=== PATIENT | female | born 1950 | race Caucasian/White ===

== ENCOUNTER 2024-11-08 10:58 | Outpatient (AMB) | payer MEDICARE, OTHER, SELFPAY ==
--- OUTSIDE RECORDS SUMMARY | 2023-11-29 09:00 | XMS_ITS | Encounter Summary ---
Author Name [facility] [place] Organization [place] Address [address] [place] [id number] Support Name Relationship Address Phone LISTED, NONE Emergency Contact Unknown Unavailabl e Selected Encounter This section includes the information on record at [place] for the Encounter. Date/Time Encounter Type Encounter Description Reason Provider Source Nov 29, 2023 01:00 PM CASE MANAGEMENT CAREGIVER SUPPORT PROGRAM ICD-10-CM Z71.0 Prsn encntr hlth serv to consult on behalf of another person LETY SHEN Encounter Template Text not used by [place] Assessments - Encounter Diagnoses This section includes the primary and secondary diagnoses documented for the Encounter. Date/Time Primary/Secondary Diagnosis Diagnosis Name Provider Source Dec 01, 2023 07:29 PM PRIMARY Prsn encntr hlth serv to consult on behalf of another person [facility]EN [facility] Encounter Notes: All associated encounter notes This section contains the clinical notes associated to the Encounter. Date/Time Encounter Note(s) Provider Source Nov 29, 2023 01:00 PM CAREGIVER CERTIFIC ATE: LOCAL TITLE: [facility] WELLNESS CONTACT CAREGIVER STANDARD TITLE: CAREGIVER CERTIFICATE DATE OF NOTE: NOV 29, 2023@13:00 ENTRY DATE: NOV 29, 2023@13:18:57 AUTHOR: LETY SHEN EXP COSIGNER: URGENCY: STATUS: COMPLETED This Family Caregiver is enrolled in the VA's Program of Comprehensive Assistance for Family Caregivers (PCAFC). While enrolled in the PCAFC, wellness contacts are required and must review the [place]'s well-being, adequacy of personal care services being provided by the Family Caregiver(s), and the well-being of the Family Caregiver(s). This wellness contact will occur at a minimum of once every 120 days, and at least one visit must occur in the eligible [place]'s home on an annual basis. Date of Visit: 11/29/23 Length of Visit: 20 mins Full Name (last, first): Yocasta Jj SSN:[id number] Date of : 1950 Method of contact: __ Telephone _x_ Telehealth / VA Video Connect Caregiver contact details: Best contact number for backup/emergency communication with caregiver (required): Phone number: x_ Other: in-home visit __ Caregiver declined to provide emergency contact information Caregiver location during visit: _x_ Home address: [address] [place], [place] [id number] __ Other non-VA location __ Caregiver declined request to disclose current location If caregiver will not provide requested information: The caregiver must be made aware of the risks associated with not providing the information. The clinician must decide with the caregiver if the visit can continue without this information. The caregiver's understanding of the risks along with the clinician's plan to proceed or to use another care modality must be documented in the medical record. _x_ Others present for visit with caregiver's consent: Name: [place]/, Ruiz Jj Caregiver confirms location is private and safe for visit. _x_ Yes Visit conducted by clinical video telehealth: _x_Yes __No Caregiver verbal consent obtained. _x_Yes __No Location/emergency number confirmed. _x_Yes __No __VA facility __ In-Home CAREGIVER INFORMATION The caregiver is a: _x_ Primary Family Caregiver __ Secondary Family Caregiver __ Secondary #2 Family Caregiver Caregiver is providing care to: Name: Ruiz Does the caregiver live with the ? _x_ Yes __ No Have there been any changes to the caregiver's address, telephone number or e-mail address? __ Yes Updates: _ _x_ No Is caregiver's contact information in electronic health record and the Caregiver Support Program IT system current? _x_ Yes __ No Updates: _ CAREGIVER ASSESSMENT How has your physical/mental/emotional health been lately? Have there been any changes (falls, ER visits, hospitalizations)? Details: -No recent ER visits, falls or hospitalizations for Caregiver. Overall, her health is stable. What current challenges or stressors do you have, if any? Details: - experienced a fall earlier in the week. He sustained a concussion and a few stitches. Caregiver is nursing him back to health. -Got denied SAH Nahun needed for home modifications. How are you coping with these issues? (discuss coping skills and support systems as appropriate, consider referral to mental health) Details: - reminded about RELEASE AND TECHNICAL RECORDS CLERK, respite care services and adult day health to assist her. She continues to decline reporting that for now she is leaning on her 51 year old son who also lives with couple. -She and [place] will be meeting with VSO to understand why they were declined SAH nahun. They continue to use HISA nahun for bathroom modfications. Do you feel comfortable and safe in your home environment? _x_ Yes __ No Details: What additional supports do you need to care for the , if any? (discuss respite services as appropriate) Details: participate in Parkinson's REACH VA Support Group which ended in September. She found benefit from this group and is interested in the [employer] Reach Group startign in December. She also finds benefit in [employer] Text Messaging service. How can the Caregiver Support Program support you? What goals/needs can we assist you with? Details: See above. SUMMARY OF VISIT/ACTION TAKEN Details: Caregiver quarterly wellness assessment took place via [facility]. [place] was recently seen in ER due to fall where he sustained a concussion and a few stitches to his head. He was discharged home and is taking it easy with 's assistance. Their house is currently under construction to make it more handicap accessible. Couple had applied for HISA and SAH grants, but were denied the latter and working with local [facility] to understand why they were declined and to see if there is the option to appeal. Couple did not appeal CEAT decision back in August regarding request for reassessment. CEAT determined that [place] continued to remain at level 1 which was disappointing to who feels she is having to provide more supervision and assistance due to the progression of [place]'s PD including an increase in freezing episodes and gait instability leading to falls. She is also having to assist with grooming tasks like shaving due to [place]'s hand tremors. Couple are aware that they can ask for future reassessment should there be a significant decline in [place]'s health. They were educated on other supports to assist caregiver such as VA RELEASE AND TECHNICAL RECORDS CLERK, respite care and adult day care. Couple have backup support in the form of their 51 year old son, Quang, who also lives with couple. [place] will be participating in PT for gait training and strengthening/conditioning. They will consider physiatry services in the future for alternative treatment options. [place] continues to be followed by Dr. Antonio, his new neurologist out of [facility], who is addressing medication changes. had participate in [facility] Parkinson's Support Group and found benefit from this group, as well as [employer] Text Messaging Service. She would like referral to upcoming [facility] Support Group. [employer] Systems Designer to place referra Referrals: (check all that apply) __ CSL Education Calls _x_ REACH [place], [facility] [place] Support Group __ Building Better Caregivers __ Caregivers FIRST __ Community Caregiver Support Group __ VA Caregiver Support Group __ VA Mental Health Therapy __ Caregiver Health and Wellbeing Coaching __ Peer Support Mentoring _x_ [employer] Text __ Financial planning assistance __ Legal assistance __ Advance Care Planning Forms __ other Reassessment /trino/ REFUGIO JOHNSON FINANCIAL REPORTING ACCOUNTANT Signed: 12/01/2023 19:30 LETY SHEN [place] CNT[facility]
--- OUTSIDE RECORDS SUMMARY | 2024-03-29 12:00 | XMS_ITS | Encounter Summary ---
Author Name [facility] [place] Organization [place] Address [address] [place] [address] Support Name Relationship Address Phone LISTED, NONE Emergency Contact Unknown Unavailabl e Selected Encounter This section includes the information on record at [place] for the Encounter. Date/Time Encounter Type Encounter Description Reason Provider Source Mar 29, 2024 04:00 PM CASE MANAGEMENT CAREGIVER SUPPORT PROGRAM ICD-10-CM Z71.0 Prsn encntr hlth serv to consult on behalf of another person LETY SHEN Encounter Template Text not used by [place] Assessments - Encounter Diagnoses This section includes the primary and secondary diagnoses documented for the Encounter. Date/Time Primary/Secondary Diagnosis Diagnosis Name Provider Source Apr 03, 2024 10:03 PM PRIMARY Prsn encntr hlth serv to consult on behalf of another person LET[facility] SHEN [facility] Encounter Notes: All associated encounter notes This section contains the clinical notes associated to the Encounter. Date/Time Encounter Note(s) Provider Source Mar 29, 2024 04:00 PM CAREGIVER CERTIFIC ATE: LOCAL TITLE: [facility] PCAFC WELLNESS CONTACT CAREGIVER STANDARD TITLE: CAREGIVER CERTIFICATE DATE OF NOTE: MAR 29, 2024@16:00 ENTRY DATE: MAR 29, 2024@21:24:51 AUTHOR: LETY SHEN EXP COSIGNER: URGENCY: STATUS: COMPLETED Caregiver Support Program PCAFC Wellness Contact Caregiver This Family Caregiver is enrolled in VA's Program of Comprehensive Assistance for Family Caregivers (PCAFC). While enrolled in PCAFC, wellness contacts review the [place]'s well-being, adequacy of personal care services being provided by the Family Caregiver(s), and the well-being of the Family Caregiver(s). Wellness contacts occur at a minimum of once every 120 days, and at least one visit must occur in the eligible [place]'s home on an annual basis. Date of visit: Mar Length of visit: 20 minutes The Caregiver was identified using the following singh identifiers: Full Name: JEREMY JJ Date of : Dec Full Address: [address] [place] [id number] Phone #: PATIENT PHONE - Email address: [email or web address] Is the above contact information in the electronic health record and the Caregiver Support Program IT system, correct? Yes Reason for contact: Routine (120-day contact) Method of contact: Video Telehealth Contact number for backup/emergency communication: PATIENT PHONE - Caregiver location during visit: [address] [place] [address] Others present for visit with caregiver's consent: Name(s): Caregiver confirms location is safe and private for visit. Telehealth Disclosure: Visit conducted by synchronous telehealth. Caregiver verbal consent obtained. Location/emergency number confirmed. Environment surveyed and all participants identified. Virtual conference room locked. CAREGIVER INFORMATION The caregiver is a: Primary Family Caregiver Caregiver is providing care to: Name: Ruiz Jj The caregiver lives with the . CAREGIVER ASSESSMENT How has your physical/mental/emotional health been lately? Details: Stable overall. Has rotator cuff issue with right shoulder that she is going to have assessed. Unable to play pickeball. Believes she has arthritis Have you experienced any changes (falls, ER visits, hospitalizations) and/or any concerns? No What is most important to you about your health and overall well-being? Details: Staying fit, doing small exercises and engaging in self-care. What goals or needs can we assist you with? Details: Caregiver inquired about follow-up Reach VA maintenance session. Dairy Husbandry Teacher agreed to discuss with colleague and get back to caregiver. Are there training topics or resources that you would like to learn more about? Details: Self-care workshops. was made aware of newsletter that will go out with upcoming workshops. Do you have any legal or financial planning concerns? Yes Details: Dairy Husbandry Teacher to forward caregiver [facility] legal and financial resource link as renovations were costly. Do you feel comfortable and safe in your home environment? Yes Do you have a personalized respite plan? Yes - Informal Details: 51 year-old son - Formal Details: educated on VA EVICTION SPECIALIST and respite support SCREENING TOOLS CSP Staff provided information on the following resources and support: - Other VA Services: VA EVICTION SPECIALIST/Respite Supports; Legal & Financial Resource. Dairy Husbandry Teacher to follow up on Reach VA maintenance session. SUMMARY AND PLAN OF SUPPORT: Caregiver quarterly wellness assessment took place via [facility]. Couple's house was recently renovated to make it more handicap accessible. They were denied SAH nahun and have gone to their local VSO to appeal that decision. continues to have episodes of freezing episodes and periodic falls. is having to provide supervision due to fall risk. was recently issued three prong cane which helps him get into small spaces like the bathroom. Couple reported that not much has changed since last assessment. They got through the holidays. wishes there were more programming for 's with PD. [place] is good about doing home PT exercises and using his stationary bike. They are considering seeing a new neurologist through the VA as they were not happy with the one at [facility]. , in the meantime, participates in some [facility] Supports and inquired about follow-up Reach session as she feels it would be beneficial to connect with other caregivers. Dairy Husbandry Teacher made aware that she and her colleague were looking to schedule a maintenance session in the near future and are working out their calendars. was made aware of upcoming caregiver newsletter with future workshops supporting caregivers. Dairy Husbandry Teacher to also forward legal/finacial resources due to recent renovations. /trino/ REFUGIO JOHNSON SERVICES MANAGER Signed: 04/03/2024 22:03 LETY SHEN [place] [facility]
--- OUTSIDE RECORDS SUMMARY | 2024-06-25 06:00 | XMS_ITS | Encounter Summary ---
Author Name [facility] [place] Organization [place] Address [address] [place] [id number] Support Name Relationship Address Phone LISTED, NONE Emergency Contact Unknown Unavailabl e Selected Encounter This section includes the information on record at [place] for the Encounter. Date/Time Encounter Type Encounter Description Reason Provider Source Jun 25, 2024 10:00 AM CASE MANAGEMENT HOME TREATMENT SERVICES ICD-10-CM Z71.0 Prsn encntr hlth serv to consult on behalf of another person LETY SHEN Encounter Template Text not used by VA Assessments - Encounter Diagnoses This section includes the primary and secondary diagnoses documented for the Encounter. Date/Time Primary/Secondary Diagnosis Diagnosis Name Provider Source Jun 28, 2024 08:09 AM PRIMARY Prsn encntr hlth serv to consult on behalf of another person LETY SHEN [facility] ([id number]) Encounter Notes: All associated encounter notes This section contains the clinical notes associated to the Encounter. Date/Time Encounter Note(s) Provider Source Jun 25, 2024 10:00 AM CAREGIVER CERTIFIC ATE: LOCAL TITLE: [facility] PCAFC WELLNESS CONTACT CAREGIVER STANDARD TITLE: CAREGIVER CERTIFICATE DATE OF NOTE: JUN 25, 2024@10:00 ENTRY DATE: JUN 25, 2024@15:19:05 AUTHOR: LETY SHEN EXP COSIGNER: URGENCY: STATUS: COMPLETED Caregiver Support Program PCAFC Wellness Contact Caregiver This Family Caregiver is enrolled in VA's Program of Comprehensive Assistance for Family Caregivers (PCAFC). While enrolled in PCAFC, wellness contacts review the 's well-being, adequacy of personal care services being provided by the Family Caregiver(s), and the well-being of the Family Caregiver(s). Wellness contacts occur at a minimum of once every 120 days, and at least one visit must occur in the eligible [place]'s home on an annual basis. Date of visit: Jun Length of visit: 45 minutes The Caregiver was identified using the following singh identifiers: Full Name: JEREMY JJ Date of : Dec Full Address: [address] [place] [id number] Phone #: PATIENT PHONE - Email address:[email or web address] Is the above contact information in the electronic health record and the Caregiver Support Program IT system, correct? Yes Reason for contact: Routine (120-day contact) Method of contact: Video Telehealth Contact number for backup/emergency communication: PATIENT PHONE - Caregiver location during visit: Home [address], [place] [address] Others present for visit with caregiver's consent: Name(s): Ruiz Jj, Caregiver confirms location is safe and private for visit. Telehealth Disclosure: Visit conducted by synchronous telehealth. Caregiver verbal consent obtained. Location/emergency number confirmed. Environment surveyed and all participants identified. Virtual conference room locked. CAREGIVER INFORMATION The caregiver is a: Primary Family Caregiver Caregiver is providing care to: Name: Ruiz Jj The caregiver lives with the [place]. CAREGIVER ASSESSMENT How has your physical/mental/emotional health been lately? Details: -Caregiver reported that she has had some cardiac issues for which she is being monitored. Have you experienced any changes (falls, ER visits, hospitalizations) and/or any concerns? No What is most important to you about your health and overall well-being? Details: Staying healthy. What goals or needs can we assist you with? Details: -Caregiver is addressing her health by seeing her providers. She is addressing her mental health via the [facility] supports. Referral had been placed last quarter to [facility] resource hub; however, she did not find it beneficial. She has participated in Reach [place] Parkinsons Support Group in fall and will periodically join alumni sessions. She has reported finding these beneficial. She has participated in [facility] drop in groups. She receives [employer] Text messages. She has participated in caregiver self-care workshops. She also participates in activities at local senior center like [facility]. She has developed a connection with another caregiver from Parkinson's Support Group whom she remains in touch with. Are there training topics or resources that you would like to learn more about? Details: Declined needing supports at this time. She receives local [facility] newsletter which informs of her of upcoming caregiver workshops/drop in groups and other resources. She has clinical writer's contact information should she like a referral. Do you have any legal or financial planning concerns? Yes. Couple were denied [facility] home modeling nahun. She is working with local VSO to appeal this and is awaiting a decision. Do you feel comfortable and safe in your home environment? Yes Do you have a personalized respite plan? Yes - Informal Details: 51 year-old son lives with them - Formal Details: Caregiver is aware of VA RN NEW GRADUATE and respite care services. SCREENING TOOLS [employer]it [place] Interview [employer] [place] Interview (Caregiver burden scale), copyright 1990 by Red Martinez and Marisol Martinez, with permission to use. ZBI Screening score (range 0-16): Score is 6, which reflects low caregiver burden (scores of less than 8). 1. Do you feel that because of the time you spend with your relative that you do not have enough time for yourself? Sometimes 2. Do you feel stressed between caring for your relative and trying to meet other responsibilities (work/family)? Sometimes 3. Do you feel strained when you are around your relative? Rarely 4. Do you feel uncertain about what to do about your relative? Rarely [facility] Staff provided information on the following resources and support: - Caregiver Self-Care Courses - Caregiver Webinars/Videos - Homemaker and Home Health Aide Services (HHHA) - Respite - Whole Health Services SUMMARY AND PLAN OF SUPPORT: Caregiver quarterly wellness assessment took place today via in-home visit. Couple's house was recently renovated to make it more handicap accessible. They were denied [facility] nahun and have gone to their local VSO to appeal that decision. [place] continues to have episodes of freezing episodes and periodic falls. is having to provide supervision due to fall risk. [place] was recently issued three prong cane which helps him get into small spaces like the bathroom. Also issued new rollator walker which is going into OT clinic to have adjusted. Couple reported that not much has changed since last assessment. Caregiver has had some health issues (cardiac in nature). She is working with her providers to have it evaluated. Caregiver is good about tapping into [facility] supports and local [facility] supports for self-care. See above. She declined needing services at this time. She reviews the quarterly CSP newsletter and is good about reaching out to clinical writer when she is seeking a referral to any of the CSP future offerings. /trino/ REFUGIO JOHNSON BUSINESS AND SERVICES INSTRUCTOR Signed: 06/28/2024 08:09 LETY SHEN [facility] ([id number])
--- OUTSIDE RECORDS SUMMARY | 2024-11-07 08:00 | XMS_ITS | Encounter Summary ---
Author Name [facility] [place] [facility] [place] Address [address] [place] [address] Support Name Relationship Address Phone LISTED, NONE Emergency Contact Unknown Unavailabl e Selected Encounter This section includes the information on record at [place] for the Encounter. Date/Time Encounter Type Encounter Description Reason Pro vider Source Nov 07, 2024 12:00 PM Outpatient Encounter CAREGIVER SUPPORT PROGRAM IHE Encounter Template Text not used by [place]
--- OUTSIDE RECORDS SUMMARY | 2024-11-08 07:19 | XMS_ITS | Continuity of Care Document ---
Author Name [facility] Organization [facility] Care Team Providers Care Classroom Instructor Name Role Phone [facility] Unavailable Unavailable Problems Combined list of problems from Department of Defense and Veterans Affairs facilities. It does not include entries that were removed or entered in error. Problem Status Onset Date Problem Type Date of Resolution Comments Source Diagnosis: ICD-10-CM Z71.0 Prsn encntr hlth serv to consult on behalf of another person Active Diagnosis [facility] (391GE) Diagnosis: ICD-10-CM Z65.8 Oth problems related to psychosocial circumstances Active Diagnosis [facility] Encounters Combined list of: 1) Encounters from Department of Veterans Affairs facilities going backup to the last 18 months, not all [place] inpatient encounters are included; 2) Encounters from the Department of [facility] facilities going backup to 280 months. Location Location Details Encounter Type Encounter Number Reason For Visit Attending Provider ADM Date DC Date Status Disposition Source [facility] PSYCH DIAGNOSTIC EVALUATION [id number] Diagnos is: ICD-10- CM Z65.8 Oth problem s related to psychos ocial circums tances ALEXANDREA,SHAVO NNE 05/22 [facility] [place] [place] [facility] Outpatient Encounter [id number] 05/22 [place] [facility] PSYTX W PT 60 MINUTES [id number] Diagnos is: ICD-10- CM Z65.8 Oth problem s related to psychos ocial circums tances DASH,SHAVO NNE 06/05 [facility] [place] [facility] Outpatient Encounter [id number] 06/05 [place] [facility] (631GE) Outpatient Encounter [id number] Diagnos is: ICD-10- CM Z71.0 Prsn encntr hlth serv to consult on behalf of another person HAMILTON LUCÍA FANG 06/29 [facility] (631GE) [facility] [place] [facility] PRO PHONE CALL 5-10 MIN [id number] Diagnos is: ICD-10- CM Z71.0 Prsn encntr hlth serv to consult on behalf of another person SHEN,ALISON 07/03 [facility] [place] [facility] [place] [facility] CASE MANAGEMENT [id number] Diagnos is: ICD-10- CM Z71.0 Prsn encntr hlth serv to consult on behalf of another person SHEN,ALISON 07/04 [place] [facility] [facility] PRO PHONE CALL 21-30 MIN [id number] Diagnos is: ICD-10- CM Z71.0 Prsn encntr hlth serv to consult on behalf of another person SHEN,ALISON 07/10 [place] [facility] [place] [facility] CASE MANAGEMENT [id number] Diagnos is: ICD-10- CM Z71.0 Prsn encntr hlth serv to consult on behalf of another person SHEN,ALISON 07/17 [place] [facility] [place] [facility] PT EDUCATION NOC GROUP [id number] Diagnos is: ICD-10- CM Z71.0 Prsn encntr hlth serv to consult on behalf of another person SHEN,ALISON 07/26 [place] [facility] Outpatient Encounter [id number] 08/02 [facility] [place] [facility] Out[facility] Encounter [id number] 08/02 [facility] [place] [facility] [place] [facility] En[facility] [id number] 08/08 [facility] [place] [facility] [facility] PT EDUCATION NOC GROUP [id number] Diagnos is: ICD-10- CM Z71.0 Prsn encntr hlth serv to consult on behalf of another person SHEN,ALISON08/09 [facility] [place] [facility] [place] Out[facility] Encounter [id number] 08/17 [facility] [place] [place] [facility] [place] [facility] PT EDUCATION NOC GROUP [id number] Diagnos is: ICD-10- CM Z71.0 Prsn encntr hlth serv to consult on behalf of another person SHEN,ALISON08/23 [facility] [place] [facility] [place] [facility] PT EDUCATION NOC GROUP [id number] Diagnos is: ICD-10- CM Z71.0 Prsn encntr hlth serv to consult on behalf of another person SHEN,ALISON09/06 [facility] [place] [facility] [facility] PT EDUCATION NOC GROUP [id number] Diagnos is: ICD-10- CM Z71.0 Prsn encntr hlth serv to consult on behalf of another person SHEN,ALISON 09/20 [facility] [place] [facility] [facility] PT EDUCATION NOC GROUP [id number] Diagnos is: ICD-10- CM Z71.0 Prsn encntr hlth serv to consult on behalf of another person ALISON SHEN SE 10/04 [place] [facility] [place] [facility] PT EDUCATION NOC GROUP [id number] Diagnos is: ICD-10- CM Z71.0 Prsn encntr hlth serv to consult on behalf of another person ALISON SHEN SE 10/18 [place] [facility] [place] [facility] CASE MANAGEMENT [id number] Diagnos is: ICD-10- CM Z71.0 Prsn encntr hlth serv to consult on behalf of another person ALISON SHEN SE 11/28 [facility] [place] [facility] [place] [facility] PT EDUCATION NOC GROUP [id number] Diagnos is: ICD-10- CM Z71.0 Prsn encntr hlth serv to consult on behalf of another person HAMILTONLUCÍA FANG 01/26 [place] [facility] [facility] CASE MANAGEMENT [id number] Diagnos is: ICD-10- CM Z71.0 Prsn encntr hlth serv to consult on behalf of another person ALISON SHEN SE 03/29 [place] [facility] (631GE) PH1 ASSMT&MGMT NQHP 5-10 [id number] Diagnos is: ICD-10- CM Z71.0 Prsn encntr hlth serv to consult on behalf of another person HAMILTONLUCÍA FANG 05/11 [facility] (631GE) [facility] [place] [facility] PT EDUCATION NOC GROUP [id number] Diagnos is: ICD-10- CM Z71.0 Prsn encntr hlth serv to consult on behalf of another person JAIR RAMIREZ 05/16 [place] [facility] [place] [facility] PT EDUCATION NOC GROUP [id number] Diagnos is: ICD-10- CM Z71.0 Prsn encntr hlth serv to consult on behalf of another person JAIR RAMIREZ 06/06 [place] [facility] (631GE) CASE MANAGEMENT [id number] Diagnos is: ICD-10- CM Z71.0 Prsn encntr hlth serv to consult on behalf of another person ALISON SHEN SE 06/25 [facility] (631GE) [facility] (631GE) Outpatient Encounter [id number] 11/07 [facility] (631GE)
--- NOTE | 2024-11-08 11:00 | A.OFFVIS_ITS ---
Vital Signs 11/08/24 11:03 Height 5 ft 2 in Weight 106 lb 0.677 oz BMI 19.4 BP 90/70 Blood Pressure Location Lt brachial Position Sitting Pulse 48 L Pulse Source Pulse Oximeter Pulse Oximetry (%) 100 Oxygen Delivery Method Room Air Intake Visit Reasons: + XIOMARA/Joint Pain Intake Note: Patient presents for a +XIOMARA and joint pain in hands. Allergies acetaminophen (From Percocet) Allergy (Severe, Verified 11/08/24 11:05) swelling oxycodone (From Percocet) Allergy (Severe, Verified 11/08/24 11:05) swelling Sulfa (Sulfonamide Antibiotics) Allergy (Mild, Verified 11/08/24 11:05) Rash Medication List - Last Reconciled 11/08/24 by Adam De Leon MD alprazolam (Xanax) 0.25 mg PO DAILY fluticasone propionate 50 mcg/actuation 1 spray intranasal BID rosuvastatin 10 mg PO DAILY sertraline 50 mg PO DAILY HPI HPI + XIOMARA/Joint Pain: Details: New patient evaluation. +XIOMARA 1:160, hand pain. Episode of pain in hands occurred last winter.. She used compression gloves and ibuprofen 400 mg every 8 hours. Ibuprofen provide more benefit than Tylenol. She experienced swelling in her MCPs bilateral hands more predominant in her palms. MS 1 hour. Triggering of R 4-5th and L 3rd-4th for 6 months after the episode of hand swelling. Now morning stiffness is about 5-10 minutes. No prior episode of joint swelling. No illness preceding symptoms. She has pain in palms of hands localized to MCPs and stiffness with movement. Pain has improved. No fevers, dyspnea, pleurisy, genital ulcers, raynaud's syndrome, migraines, urinary symptoms. She has dry eyes and dry mouth. Hx of microscopic hematuria. She had a cystoscopy and reports that it did not find a cause of her microscopic hematuria. +cold sores but sores this winter Hx of iritis few times. Last epsiode was last year. Started in her 80s. She has infrequent episodes over the years but it has always affected the right eye. She has had at least 4 episodes. Treated with Pred Forte, which she has at home. No hx of back pain when young. No hx of IBD or PsO. No family history of IBD or psoriasis. hx of endometrial cancer. 2006 complete hysterectomy for tx without chemo or radiation. Family history of RA: Paternal grandmother has RA. Brother has polymyositis vs body inclusion myopathy. Retired. 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 [facility] Medical History (Updated 11/08/24 @ 12:28 by Adam De Leon MD) Basal cell carcinoma Endometrial cancer Osteopenia High cholesterol Family History (Updated 11/08/24 @ 11:14 by Lali Eller CMA) Paternal Grandmother Rheumatoid arthritis Osteoarthritis Brother Polymyositis with myopathy Physical Exam Vital Signs: Last Vital Signs Pulse 48 L 11/08/24 11:03 BP 90/70 11/08/24 11:03 Pulse Ox 100 11/08/24 11:03 Oxygen Delivery Method Room Air 11/08/24 11:03 BMI result Body Mass Index 19.4 Const Other: General: Comfortable CVS: RRR Respiratory: clear to auscultation bilaterally. Good respiratory effort Skin: No lesions seen MSK: Nodule palpated palmar aspect of right 4th MCP and left 3rd MCP. No synovitis palpated of MCPs. Left 2nd to 4th PIP is tender. Right 2nd and 3rd PIP is tender. Mild synovitis right 2nd PIP. She has Heberden nodes and Valdez's nodes. She is able to steerer her hands. Normal range of motion of upper extremities and lower extremities. No MTP tenderness. Assessment & Plan Assessment & Plan (1) Positive XIOMARA (antinuclear antibody): Comment: Low titer 1:160, sicca symptoms, recurrent right uveitis, episode concerning for inflammatory arthritis winter 2023 with subsequent development of multiple trigger fingers and polyarthralgias. On exam she does not have active signs of inflammatory arthritis. She has osteoarthritis clinically. She has negative rheumatoid factor anti CCP antibodies. We discussed next steps in evaluation. Code(s): R76.8 - Other specified abnormal immunological findings in serum Category: Medical Plan: X-ray bilateral hands Labs ordered for further evaluation of connective tissue disease including inflammatory markers, HLA B27, SSA/SSB OT ordered for trigger finger with splinting. Consider targeted cortisone injections in the future if needed Return to clinic in 3 months (2) Iritis of right eye: Code(s): H20.9 - Unspecified iridocyclitis Category: Medical Plan: See above (3) Sicca syndrome: Code(s): M35.00 - Sjogren syndrome, unspecified Category: Medical Plan: See above (4) Trigger finger (acquired): Code(s): - Trigger finger, unspecified finger Category: Medical Plan: See above Orders: Orders Complete Blood Count Auto Diff Today R76.0 - Raised antibody titer UA ClnCatch+Micro w/rflx Cult Today R76.0 - Raised antibody titer Protein Creatinine Ratio, Ur Today R76.0 - Raised antibody titer Creatinine Today R76.0 - Raised antibody titer C Reactive Protein Today R76.0 - Raised antibody titer Erythrocyte Sedimentation Rate Today R76.0 - Raised antibody titer Complement C3 Today R76.0 - Raised antibody titer Complement C4 Today R76.0 - Raised antibody titer OT Evaluation and Treatment Today - Trigger finger, unspecified finger XR Hand Bilat min 3v Today M79.641 - Pain in right hand, M79.642 - Pain in left hand HLA B27 Today H20.9 - Unspecified iridocyclitis, M35.00 - Sjogren syndrome, unspecified, R76.8 - Other specified abnormal immunological findings in serum Sjogren's Antibodies Today H20.9 - Unspecified iridocyclitis, M35.00 - Sjogren syndrome, unspecified, R76.8 - Other specified abnormal immunological findings in serum Alanine Aminotransferase Today R76.0 - Raised antibody titer Aspartate Amino Transferase Today R76.0 - Raised antibody titer Anti DNA DS Antibody Today R76.0 - Raised antibody titer Sm Sm/[employer] Antibodies Today R76.0 - Raised antibody titer Coding Level of Care Code New Pt Level 4 (08405) Diagnoses Positive XIOMARA (antinuclear antibody) R76.8 Iritis of right eye H20.9 Sicca syndrome M35.00 Trigger finger (acquired)
[2024-11-08 11:03] VITALS: BP 90/70; PULSE 48; O2SAT 100; BMI 19.4
--- OUTSIDE RECORDS SUMMARY | 2024-11-08 12:22 | XMS_ITS | Encounter Summary ---
Author Organization [facility] Address [address] [place] [phone] Phone Care Team Providers Care Inside Account Representative Name Role Phone Nataliya Szymanski NP Primary Care Provider Self-Referred, Patient Unavailable Unavailab Davian Becker MD Unavailable [phone] Unknown, Unknown Primary Care Provider Humaira Eng Primary Care Provider Humaira Gomez Unavailable [phone] Encounter Details Date Type Department Care Team (Late Contact Info) Description 11/19/2020 Procedure Pass Non-Invasive Cardiology [address] [place] [address] Social History Tobacco Use Types Packs/Day Years Used Date Smoking Tobacco: Never Smokeless Tobacco: Never Alcohol Use Standard Drinks/Week Comments Yes 2 (1 standard drink = 0.6 oz pur e alcohol) 2-4 glasses of wine weekly Comments Unknown Sex and Gender Information Value Date Recorded Sex Assigned at Female 04/04/2020 3:39 PM EST Legal Sex Female 6:42 PM EST Gender Identity Female 04/04/2020 3:39 PM EST Sexual Orientation Straight 04/04/2020 3: 39 PM EST documented as of this encounter Plan of Treatment Upcoming Encounters Date Type Department Care Team (Late Contact Info) Description 11/28/2024 10:00 AM EDT Office Visit [facility] [address] [place] [address] Chao Turcios MD [address] [place] [phone] documented as of this encounter Visit Diagnoses Not on filedocumented in this encounter Additional Health Concerns Infection Onset Date Last Indicated Resolved Time CoV-Exposed Comment:Recent close contact documented in the COVID-19 PCR/PRO order 12/17/2020 12/17/2020 01/01/2021 1:22 AM E DT CoV-Exposed Comment:Recent close contact documented in the COVID-19 Amb Triage Form 12/03/2021 12/03/2021 12/14/2021 1:22 AM E DT Assessment Noted Time PHQ-2 Depression Total Score: 0 01/21/20 18 11:16 AM EST documented as of this encounter Care Teams Inside Account Representative Relationship Specialty Start Date End Date Nataliya Szymanski NP PCP - General 12/21/16 05/29/23 Unknown, Unknown, PCP - General 05/30/23 10/12/23 Humaira Gomez [address] [place] [address], [address] [place] [phone] [email or web address] PCP - General Family Medicine 10/13/23 Self-Referred, Patient Referring Physician 12/21/16 Davian Green MD [address] [place] [phone] Insurance Assigned Provider 06/18/23 Humaira Gomez [address] [place] [address], [address] [place] [address] [email or web address] Insurance Assigned Provider 06/17/24 documented as of this encounter Additional Source Comments The information contained in this document represents components of the legal health record. It is not the complete legal health record.[facility]
--- OUTSIDE RECORDS SUMMARY | 2024-11-08 12:22 | XMS_ITS | Clinical Summary ---
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 Takes womans one a day 1 po qd Active sertraline (ZOLOFT) 50 MG tabletIndications :Mild episode of recurrent major depressive disorder Take 1 tablet (50 mg total) by mouth daily. 30 tablet 11 5 04/27/19 26 Active ALPRAZolam (XANAX) 0.25 MG tabletIndications :Generalized anxiety disorder Take 1 tablet (0.25 mg total) by mouth nightly at bedtime as needed for anxiety. 20 tablet 5 Active loratadine (CLARITIN) 10 mg tabletIndications :Chronic cough 5 Active fluticasone propionate (FLONASE) 50 mcg/actuation nasal sprayIndications: Chronic cough 1 spray 2 (two) times a day. 5 Active rosuvastatin (CRESTOR) 10 MG tabletIndications :Elevated LDL cholesterol level Take 1 tablet (10 mg total) by mouth daily. 90 tablet 3 5 Active Active Problems Problem Noted Date Diagnosed Date Encounter for annual wellnes s visit (AWV) in Medicare patient 05/15/2024 Assessment & Plan (05/15/2024 10:43 AM EST): This is a 73 y.o. female who presents for a complete physical exam. Past medical history, surgical history, social history, family history and allergies reviewed and document in chart. -Blood pressure taken, no signs of hypertension. -General health screening appropriate for age reviewed -General nutrition recommendations reviewed: 5 servings of fruits and vegetables, adequate protein. -Exercise recommendations reviewed: 150 minutes of cardiovascular exercise weekly. At least two strength training sessions weekly for muscle mass and bone health. -Breast cancer screening discussed: Last mammogram: February 2021. Result: BIRADS 1. Any abnormal hx: no, has had lumpectomies but always benign. Due in February 2025. -Colon cancer screening discussed: Last colonoscopy: 2021. Result: normal Any abnormal hx: no. Due in 2031. -Cervical cancer screening discussed: Last pap 2009, s/p hysterectomy. -Smoking cessation: NA -Lung Cancer Screening: NA -Abdominal Aortic Aneurysm: NA -Osteoporosis screening discussed: Last DEXA: 2023. Result: osteopenia. Will recheck in a couple of years. -Prediabetes and Type 2 Diabetes Screening: Negative -Hyperlipidemia screening: Excellent. -STI screening: Declines. -One lifetime HIV and Hep C test: Negative -IPV screen: negative -PHQ2: 2, GAD7: 11 -ADLS: No limitations -Immunizations reviewed: Due for shingles. Will get. -Labs as ordered -Regular vision and dental exams recommended: UTD -Calcium with Vitamin D recommendations reviewed: 800 international units of vitamin D daily and 1200 mg elemental calcium in post menopausal women -Living will/MOLST/HCP: Paperwork provided. HCP is her son Quang. -Annual physical exam recommended Osteopenia 05/15/2024 Assessment & Plan (05/15/2024 10:33 AM EST): Last bone density was in March 2023 in the osteopenia range. Takes calcium and vitamin D supplement. Does weight lifting. Enlarged lymph nodes 05/15/2024 Assessment & Plan (05/15/2024 11:00 AM EST): Patient with a L lymph node that has been present for the past 5 months. Noted first by her dentist. Not painful. Will get US. Chronic cough 05/15/2024 Assessment & Plan (06/26/2024 10:04 AM EDT): Continue Claritin. Get PFTs. Would like to see pulmonology and I think she should see allergy as well. Referrals placed. Discussed red flag symptoms that should prompt urgent reevlaution. Assessment & Plan (05/15/2024 5:48 PM EST): Does sound more likely to be infectious or allergic rather than GERD related, especially given other nasal symptoms. Episode last year resolved with Flonase and Protonix so cannot differentiate. Will have her continue Flonase. If symptoms don't improve can try an antihistamine. If she still does not have relief then move to Protonix again. No reflux symptoms. Mixed stress and urge urinary incontinence 04/27 Overview (04/27/2024): Has not seen gynecology in many years. Wears a pad. Microscopic hematuria 04/27/2024 Overview (04/27/2024): Has seen urology, had cystoscopy. No concerns. Anxiety 10/13/2023 Hypercholesteremia 10/13/2023 Overview (04/27/2024): Well controlled on rosuvastatin 10mg daily. Good HDL. PVC (premature ventricular contraction) 03/15/19 Overview (04/27/2024): Symmtomatic, has discussed medication. Sees cardiology. Going to have a stress test in May as she has some chest heaviness when exercise. Atrophic vaginitis 01/20/2022 Overview (04/27/2024): Does not use any creams, history of endometrial cancer. Hand arthritis 09/04/2020 Overview (04/27/2024): Patient reports nodules on knuckles of both hands for years that have become enlarged and painful. Having trouble opening and closing and close fingers due to pain and stiffness. Generalized morning stiffness as well. Assessment & Plan (05/15/2024 10:59 AM EST): Did have positive XIOMARA, has generalized fatigue. RA and anti-CCP negative. Will refer to rheumatology. Other hemorrhoids 09/04/2020 Assessment & Plan (04/27/2024 1:14 PM EST): Saw GI and was found to have fissure. Every once in a while will still irritate. Assessment & Plan (10/13/2023 6:46 PM EDT): Internal and external hemorrhoids. I'm wondering if one was thrombosed and opened which now has led to less pain. Symptoms are consistent with hemorrhoids, no red flag symptoms. Colonoscopy 2 years ago that was normal aside from hemorrhoids. Discussed Tucks pads, sitz baths, preparation H. Option for surgical intervention if this doesn't resolve symptoms though they can still always recur. Will refer to GI out of an abundance of caution given her age. Psychophysiological insomnia 03/22/2019 Overview (04/27/2024): Uses alprazolam as needed. History of endometrial cancer 02/02/2019 Overview (04/27/2024): Diagnosed at 57 years old. Had gone a year without her period and then started to spot. Biopsy was performed and found to be grade I. Had a total abdominal hysterectomy. No chemotherapy or radiation. No further paps. Has not seen gynecology in many years. I would like her to continue to be followed. Generalized anxiety disorder 01/23/2018 Overview (04/27/2024): Anxiety for most of her life, well controlled. Most is related to care giving for her who has Parkinson's. In a care givers group. Looking for a therapist. Takes sertraline 50mg daily and uses alprazolam as needed for increased anxiety. Allergic rhinitis 04/15/2017 Mild episode of recurrent major depressive disor jacquie 04/15/2017 Gastroesophageal reflux disease without esophagi tis 04/15/2017 Overview (04/27/2024): Uses Protonix in the past. Uses Tums currently as needed. Elevated LDL cholesterol level 04/15/2017 Resolved Problems Problem Noted Date Diagnosed Date Resolved Date Person encountering health s ervices to consult on behalf of another person 10/13/202304/14 Pain of left breast 05/05/2023 04/27/19 25 Assessment & Plan (05/05/2023 1:41 PM EST): CBE is WNL today. Advised to monitor and if anything changes to call us back If MSK heat and massage / time should help it resolve Diverticulitis 11/25/2022 04/27/2024 Overview (11/25/2022): Had diverticulitis on CT 2022- see scan done at [facility] Assessment & Plan (11/25/2022 1:14 PM EDT): She has a H/O of this- now with Diarrhea since Tuesday lose black-green in color ( used pepto bismol) No fever/ able to get on / off table easily- able to bounce lightly up and down in room- easily- no pain on exam. I do NOT think her current s/s are a flare- but reviewed warning signs with her she will monitor , try hydration and BRAT diet-and call for any worsening Laryngeal spasm 02/02/2019 04/27/2024 Post-menopausal 02/02/2019 04/27/2024 Encounters Date Type Department Care Team Description 10/30/2024 1:40 PM EDT - 10/30/2024 11:59 PM EDT Hospital Encounter [facility] [address] [place] [address] Mike Becerril MD Discharge Disposition: Home or Self Care 09/28/2024 1:56 PM EDT - 09/28/2024 11:59 PM EDT Hospital Encounter [facility] PFT [facility] [address] [place] [address] Humaira Gomez Discharge Disposition: Home or Self Care 09/28/2024 Transcribe Orders [facility] [address] [place] [address] Humaira Gomez from Last 3 Months Immunizations Immunization Administration Dates Next Due COVID-19 (Pre-01/03) Moderna Vaccine, mRNA, PF 05/06/2020,04/08/2020 COVID-19 Moderna Spikevax Vaccine 12+ 12/10/2022 INFLUENZA, SPLIT VIRUS, TRIV ALENT W/ PRESERVATIVE IM 01/14/2014 Influenza High-Dose Quadriva lent Preservative Free IM 12/10/2022,12/06/2019 Influenza High-Dose Trivalen t Preservative Free IM 12/22/2023,12/14/2018,12/16/2017 Influenza Quadrivalent Adjuv anted Preservative Free IM 01/15/2022,12/26/2020 Influenza Quadrivalent Preservative Free IM 04/2017 Pneumococcal conjugate PCV13 01/20/2018 Pneumococcal polysaccharide PPSV23 12/06/2019, Tdap 02/02/2019 Family History Medical History Relation Comments Diabetes Brother Myopathy Brother Body Inclusion Lung cancer Father Smoker No Known Problems Maternal Grandfather Uterine cancer Maternal Grandmother Alcohol abuse Mother Cirrhosis Mother Diabetes Paternal Grandfather Rheumatoid arthritis Paternal Grandmother No Known Problems Son 1 No Known Problems Son 2 Relation Status Comments Brother (Age 59) Father Maternal Grandfather Maternal Grandmother Mother (Age 62) Paternal Grandfather Paternal Grandmother Son 1 Alive Son 2 Alive Social History Tobacco Use Types Packs/Day Years Used Date Smoking Tobacco: Never Smokeless Tobacco: Never Tobacco Cessation:Counseling Given: Not Answered Alcohol Use Standard Drinks/Week Comments Yes 0 (1 standard drink = 0.6 oz pur e alcohol) 1-2 drinks, 2-4 x month Education Answer Date Recorded Are you interested in more education? Not on deny e 07/10/2022 Are you concerned about learning? Not on file 07/10/2022 No 07/10/2022 No 07/10/2022 Digital Access Answer Date Recorded No 08/08/2022 No 08/08/2022 Reliable internet access at home? Not on file 08/08/2022 Device with a working camera? Not on file Intimate Partner Violence Answer Date R ecorded Denied Basic Needs Not on file 05/12/2024 In the past 12 months have y ou been in a relationship with a person who hurts, threatens, or tries to control you? No 05/12/2024 Worried food would run out Not on file 05/12 In the past 12 months have y ou been in a relationship with a person who hurts, threatens, or tries to control you? No 05/12/2024 Comments No Sex and Gender Information Value Date Recorded Sex Assigned at Female 04/04/2020 3:39 PM EST Legal Sex Female 6:42 PM EST Gender Identity Female 04/04/2020 3:39 PM EST Sexual Orientation Straight 04/04/2020 3: 39 PM EST Last Filed Vital Signs Vital Sign Reading Time Taken Comments Blood Pressure 110/64 06/26/2024 9:28 AM EDT Pulse 60 06/26/2024 9:28 AM EDT Temperature 36.7 C (98 F) 06/26/2024 9:28 AM EDT Respiratory Rate 16 01/21/2023 11:00 AM EST Oxygen Saturation 98% 06/26/2024 9:28 AM EDT Inhaled Oxygen Concentration - - Weight 49.4 kg (109 lb) 06/26/2024 9:28 AM EDT Height 155.5 cm (5' 1.22 ) 06/26/2024 9:28 AM ED T Body Mass Index 20.45 06/26/2024 9:28 AM EDT Plan of Treatment Upcoming Encounters Date Type Department Care Team (Late st Contact Info) Description 11/28/2024 10:00 AM EDT Office Visit [facility] [address] [place] [id number] Irene Turcios MD [address] [place] [address] [address] [place] [address] Health Maintenance Due Date Last Done Comments COLOGUARD 1997 FIT TEST 1997 FOBT 1997 SIGMOIDOSCOPY 1997 VIRTUAL COLONOSCOPY 1997 ZOSTER VACCINES (1 of 2) 2002 COVID-19 VACCINE ( season) 2024 12/22/2023, 12/10/2022, 01/15/2022, Additional history exists INFLUENZA VACCINE (#1) 2024 , 12/10/2022, 12/10/2022, Additional history exists DEPRESSION SCREENING 05/12/2025 05/12/2024 MAMMOGRAM 02/14/2026 02/15/2024, 01/13, 12/30/2021, Additional history exists RSV VACCINE (1 - 1-dose 75+ series) 12/13/2027 Adult Td,Tdap Booster 02/02/2029 02/02/2019 LIPID PANEL 05/07/2029 05/07/2024, 03/15, 04/02/2022, Additional history exists COLONOSCOPY 05/22/2031 05/21/2021, 12/11/2013 COLORECTAL CANCER SCREENING 05/22/2031 HEPATITIS C SCREENING Completed 12/14/2018, 019 PNEUMOCOCCAL VACCINES (50+ years) Completed 12/06/2019, 01/20/2018, 07/30/2014 OSTEOPOROSIS SCREENING INITIAL (ONE-TIME) Completed 04/06/2023, 01/13/2023, 01/20/2022, Additional history exists SMOKING STATUS SCREENING (Once After 26 Yrs) Completed 06/26/2024 HEPATITIS A VACCINES Aged Out No long er eligible based on patient's age to complete this topic HIB VACCINES Aged Out No longer eligi ble based on patient's age to complete this topic MENINGOCOCCAL VACCINES (ACWY) Aged Out No longer eligible based on patient's age to complete this topic MENINGOCOCCAL VACCINES (B) Aged Out N o longer eligible based on patient's age to complete this topic Medical Devices Not on file Procedures Procedure Name Priority Date/Time Associated Diagnosis Comments ANATOMIC PATHOLOGY Routine 10/30/2024 12 :00 AM EDT PULMONARY FUNCTION TEST Routine 09/28/2024 2:53 PM EDT Chronic cough LIPID PANEL Routine 05/07/2024 8:50 AM EST Elevated LDL cholesterol level HM MAMMOGRAPHY Routine 02/15/2024 3:26 PM EST BD DXA AXIAL (SPINE) WITH HIP Routine 04/06/2023 11:11 AM EST Osteopenia, unspecified location Osteopenia Post-menopausal ENDOSCOPY, COLON 05/21/2021 11:5 9 AM EST HEPATITIS C ANTIBODY, QUALITATIVE Routine 12/14/2018 11:18 AM EDT Need for hepatitis C screening test from Last 3 Months or Most Recently Relevant to Health Maintenance Results * Anatomic Pathology (10/30/2024 12:00 AM EDT) 10/30/2024 10/31/2024 2:2 0 PM EDT Narrative SEE NARRATIVE - 11/01/2024 3:04 PM EDT [address] [address] Tag Writer: Uvaldo Wilson MD Surgical Pathology Report FINAL PATHOLOGIC DIAGNOSIS: SKIN, LEFT TENRIISM: Actinic keratosis with verrucous features and inflamed crust. Electronically Signed Out By Denny Maravilla MD By his/her signature above, the pathologist listed as making the Final Diagnosis certifies that he/she has personally reviewed this case and confirmed or corrected the diagnosis. CLINICAL HISTORY Papule left adventism seborrheic keratosis versus BCC SPECIMENS SUBMITTED: A: SKIN, LEFT TENRIISM GROSS DESCRIPTION SKIN, LEFT TENRIISM: Received in formalin are 2 irregular portions of abreu skin measuring 0.4 x 0.3 cm on average each excised to a maximum depth of 0.1 cm which are submitted in toto in a single cassette labeled A1. Grossed by: JANES Hodgson, PA([facility]) [id number] 10/31/2024 Grossing Staff: [id number] Patient Name: YOCASTA JJ : 1950 (Age: 73) Sex: F Institution: [facility] Location: [facility] Date of Operation: 10/30/2024 Date of Reported: 11/01/2024 15:04 Results To: Mike Becerril MD, BS Humaira Gomez MD, MED us Mike Becerril MD PATHOLOGY ORDERABLES Final R esult SEE NARRATIVE * Pulmonary Function Test Reason for Exam: Cough; Type of PFT Test: Spirometry with bronchodilator; Performing Location: [facility] (09/28/2024 2:53 PM EDT) FEV1 2.08 liters FVC 2.75 liters FEV1/FVC 76 % TLC DLCO Anatomical Region Laterality Modality Other Impressions 09/28/2024 2:53 PM EDT PULMONARY FUNCTION STUDIES Limited pulmonary function studies were performed on this 73 y.o. year-old female for evaluation of chronic cough. Review of the medical record reveals that the patient is a never smoker. Prior pulmonary function studies are not available for comparison. SPIROMETRY: The FEV1 is normal at 1.99 L or 102% predicted. The FVC is normal at 2.77 L or 111% predicted. The FEV1/FVC ratio is normal at 72%. After the administration of a bronchodilator agent, there is no technically significant change. FLOW-VOLUME LOOPS: Evaluation of the flow-volume loops reveals normal morphology of both the inspiratory and expiratory limbs with no significant difference when comparing the tracings performed pre- and post-bronchodilator. COMPARISON TO PRIOR STUDIES: none available. Resting oxygen saturation is 98% on room air. IMPRESSION: Completely normal pre and postbronchodilator spirometry with no evidence of airflow obstruction or bronchial hyperreactivity. No findings to account for patient's chronic cough. Technical Note: As of 01/24/2024, the [facility] Pulmonary Function Testing (PFT) Laboratory transitioned from using race-specific to using race-neutral equations for determining lung function predicted values for all persons. Due to this change some individuals previously classified as either normal or abnormal may now change from one to the other category without a true change in lung function. Such changes, as well as changes in severity classification, should be considered broadly and in their clinical context. Absolute values of lung function are unaffected. For further questions please contact the interpreting physician or PFT laboratory assistant. For further discussion of this issue please see Yolanda [facility] 2022;[phone]. Please Note: Not all PFT labs within, or outside of, our system will be transitioning to new reference equations at the same time. For this reason, please pay close attention to absolute values when comparing results done at different testing locations within or outside of our system. [facility] PFT ORDERABLES Final Resul t * (ABNORMAL) Lipid panel (05/07/2024 8:50 AM EST) HDL 98 mg/dL [facility] Comment: Interpretation <40 mg/dL: Low HDL cholesterol (major risk factor for CHD) Greater than or equal to 60 mg/dL: High HDL cholesterol ( negative risk factor for CHD) HDL - cholesterol is affected by a number of factors, e.g. smoking, excerise, hormones, sex and age. CHOLESTEROL 194 0 - 240 mg/dL [facility] TRIGLYCERIDES 94 30 - 160 mg/dL [facility] LDL 77 50 - 129 mg/dL [facility] Comment: LDL levels in terms of risk for coronary heart disease: <100 mg/dL: Optimal 100-129 mg/dL: Near or above optimal 130-159 mg/dL: Borderline high 160-189 mg/dL: High >190 mg/dL: Very High CARDIAC RISK RATIO 2.0(L) 3.3 - 4.4 [facility] Blood 05/07/2024 8:50 AM EST 05/07/2024 8:54 AM EST [facility] BLOOD ORDERABLES Final Result [facility] [address] [place] [address] * MAMMOGRAPHY FOR RESULT ENTRY ONLY (02/15/2024 3:26 PM EST) [facility] R esult - Final * BD DXA AXIAL (SPINE) WITH HIP (04/06/2023 11:11 AM EST) Anatomical Region Laterality Modality Bone Density Bone Density 04/06/2023 2:06 PM EST Impressions 04/06/2023 4:00 PM EST Osteopenia based on bone mineral density in the lumbar spine and bilateral total hips. ATTESTATION: I, Fritz Sanchez as teaching physician, have reviewed the images for this case and if necessary edited the report originally created by Ubaldo Rios. Narrative 04/06/2023 4:00 PM EST BD DXA AXIAL (SPINE) WITH HIP INDICATION: Postmenopausal estrogen deficiency. Osteoporosis screening. COMPARISON: None. Evaluation of the lumbar spine and both hips is obtained and appears technically adequate. The lumbar spine from L1 through L3 discloses a total bone mineral density of 0.855 g/cm2 T-score: -1.5 Z-Score: 0.6 WHO Classification: Osteopenia The right hip (total) has a total bone mineral density of 0.759 g/cm2 T-score: -1.5 Z-Score: 0.0 WHO Classification: Osteopenia The right hip (neck) has a total bone mineral density of 0.704 g/cm2 T-score: -1.3 Z-Score: 0.5 The left hip (total) has a total bone mineral density of 0.753 g/cm2 T-score: -1.6 Z-Score: 0.0 WHO Classification: Osteopenia The left hip (neck) has a total bone mineral density of 0.695 g/cm2 T-score: -1.4 Z-Score: 0.4 FRAX: 10-Year Fracture Risk Major Osteoporotic Fracture: 8.4% Hip Fracture: 1.3% Procedure Note Fritz Sanchez MD - 04/06/2023 BD DXA AXIAL (SPINE) WITH HIP INDICATION: Postmenopausal estrogen deficiency. Osteoporosis screening. COMPARISON: None. Evaluation of the lumbar spine and both hips is obtained and appearstechnically adequate. The lumbar spine from L1 through L3 discloses a total bone mineral densityof 0.855 g/cm2 T-score: -1.5 Z-Score: 0.6 WHO Classification: Osteopenia The right hip (total) has a total bone mineral density of 0.759 g/cm2 T-score: -1.5 Z-Score: 0.0 WHO Classification: Osteopenia The right hip (neck) has a total bone mineral density of 0.704 g/cm2 T-score: -1.3 Z-Score: 0.5 The left hip (total) has a total bone mineral density of 0.753 g/cm2 T-score: -1.6 Z-Score: 0.0 WHO Classification: Osteopenia The left hip (neck) has a total bone mineral density of 0.695 g/cm2 T-score: -1.4 Z-Score: 0.4 FRAX: 10-Year Fracture Risk Major Osteoporotic Fracture: 8.4% Hip Fracture: 1.3% IMPRESSION: Osteopenia based on bone mineral density in the lumbar spine and bilateraltotal hips. ATTESTATION: I, Fritz Sanchez as teaching physician, have reviewed theimages for this case and if necessary edited the report originally createdby Ubaldo Rios. us Nataliya Szymanski NP IMG BD BONE DENSITY DEXA Final Result * ENDOSCOPY, COLON (05/21/2021 11:59 AM EST) Narrative Transcriptions Irene Cid MD - 05/21/2021 11:59 AM EST Patient Name: Yocasta Jj Attending MD:: IRENE CID MD Procedure Date: 05/21/2021 11:59 AM Date of : 1950 Age: 70 Admit Type: Outpatient [facility]: [facility] Referring MD: NATALIYA SZYMANSKI Exam Type: Colonoscopy Indications: Last colonoscopy: 2014, Hematochezia Medications: Monitored Anesthesia Care Procedure: Informed consent was obtained from the patientafter discussion of the indications, limitations, alternatives, benefits, and risks of the procedure. Risks specifically discussed include but are not limited to medication reactions, missed lesions, bleeding, perforation, or the need for emergent surgery. Throughout the procedure, the patient's blood pressure, pulse, end-tidal CO2, and oxygensaturations were monitored continuously. The Olympus pediatric variable colonoscopePCF-[id number] #1 was introduced through the anus and advanced tothe cecum, identified by the appendiceal orifice, ileocecal valve and palpation. The colonoscopy was performed without difficulty. The patient tolerated the procedure fairly well. The quality of the bowel preparation was good. The ileocecal valve,appendiceal orifice, and rectum were photographed. Complications: No immediate complications. Estimated blood loss:None. Findings: Skin tags were found on perianal exam. Non-bleeding internal hemorrhoids were found during retroflexion. The hemorrhoids were moderate. Retroflexion in the right colon was performed. The exam was otherwise without abnormality ondirect and retroflexion views. Impression: - Perianal skin tags found on perianal exam. - Non-bleeding internal hemorrhoids. - The examination was otherwise normal on directand retroflexion views. - No specimens collected. Recommendation: - High fiber diet. - Repeat colonoscopy in 10 years for screening purposes. IRENE CID MD 05/21/2021 12:35:05 PM This report has been signed electronically. Number of Addenda: 0 Note Initiated On: 05/21/2021 11:59 AM Procedure Code(s): --- Professional --- 83454, Colonoscopy, flexible; diagnostic, including collection of specimen(s) by brushing or washing, when performed (separateprocedure) --- Technical --- 99847, Colonoscopy, flexible; diagnostic, including collection of specimen(s) by brushing or washing, when performed (separateprocedure) Diagnosis Code(s): --- Professional --- K64.8, Other hemorrhoids K64.4, Residual hemorrhoidal skin tags K92.1, Melena (includes Hematochezia) --- Technical --- K64.8, Other hemorrhoids K64.4, Residual hemorrhoidal skin tags K92.1, Melena (includes Hematochezia) CPT copyright 2020 [employer]. All rights reserved. The codes documented in this report are preliminary and upon stave and bolt equalizer reviewmay be revised to meet current compliance requirements. Procedure Date: 05/21/2021 11:59:[address] [place] [address] us Nataliya Szymanski NP GI PROCEDURE ORDERABLES Final R esult * Hepatitis C antibody, qualitative (12/14/2018 11:18 AM EDT) HCV NON-REACTIV E NON-REACTI VE [facility] Blood 12/14/2018 11:1 8 AM EDT 12/14/2018 11:20 AM EDT us Nataliya Szymanski NP LAB BLOOD ORDERABLES Final Resu lt [address] [address] from Last 3 Months or Most Recently Relevant to Health Maintenance Insurance [facility] [place] [address] MEDICARE PART A & B [facility] [place] [address] MEDICARE PART A & [place] [address] MEDICARE PART A & [place] [address] MEDICARE PART A & [place] [address] MEDICARE PART A & [place] [address] MEDICARE PART A & B MEDICARE PART A & [place] [address] MEDICARE PART A & B MEDICARE PART A [place] [address] MEDICARE PART A & B Care Teams Bleach Boiler Filler Relationship Specialty Start Date End Date Humaira Gomez [address] [facility], [address] [place] [address] [email or web address] PCP - General Family Medicine 10/13/23 Self-Referred, Patient Referring Physician 12/21/16 Humaira Gomez [address] [place] [address], [address] [place] [address] [email or web address] Insurance Assigned Provider 06/17/24 Additional Source Comments The information contained in this document represents components of the legal health record. It is not the complete legal health record.[facility]
--- OUTSIDE RECORDS SUMMARY | 2024-11-08 12:22 | XMS_ITS | Encounter Summary ---
Author Organization [facility] Address [address] [facility] [address] [place] [address] Phone Care Team Providers Care Manual Arts Therapist Name Role Phone Nataliya Szymanski NP Primary Care Provider [phone] Self-Referred, Patient Unavailable Unavailab Davian Becker MD Unavailable [phone] Unknown, Unknown Primary Care Provider Humaira Eng Primary Care Provider Humaira Gomez Unavailable [phone] Encounter Details Date Type Department Care Team (Late Contact Info) Description 05/21/2021 Procedure Pass [facility] Endoscopy Admitting Dept Virtual Department [address] [place] [address] Social History Tobacco Use Types Packs/Day Years Used Date Smoking Tobacco: Never Smokeless Tobacco: Never Alcohol Use Standard Drinks/Week Comments Yes 3 (1 standard drink = 0.6 oz pur e alcohol) Comments Unknown Sex and Gender Information Value Date Recorded Sex Assigned at Female 04/04/2020 3:39 PM EST Legal Sex Female 6:42 PM EST Gender Identity Female 04/04/2020 3:39 PM EST Sexual Orientation Straight 04/04/2020 3: 39 PM EST documented as of this encounter Plan of Treatment Upcoming Encounters Date Type Department Care Team ([facility] Contact Info) Description 11/28/2024 10:00 AM EDT Office Visit [facility] Pulmonary, Allergy and Critical Care Medicine [address] [place] [address] Chao Turcios MD [address] [place] [address] documented as of this encounter Visit Diagnoses Not on filedocumented in this encounter Additional Health Concerns Infection Onset Date Last Indicated Resolved Time CoV-Exposed Comment:Recent close contact documented in the COVID-19 Amb Triage Form 12/03/2021 12/03/2021 12/14/2021 1:22 AM E DT Assessment Noted Time PHQ-2 Depression Total Score: 0 01/14/20 21 6:42 PM EDT documented as of this encounter Care Teams Manual Arts Therapist Relationship Specialty Start Date End Date Nataliya Szymanski NP PCP - General 12/21/16 05/29/23 Unknown, Unknown, MD PCP - General 05/30/23 10/12/23 Humaira Gomez [address] [place] [address], [address] [place] [address] [email or web address] PCP - General Family Medicine 10/13/23 Self-Referred, Patient Referring Physician 12/21/16 Davian Green MD [address] [place] [address] Insurance Assigned Provider 06/18/23 Humaira Gomez [address] [place] [address], [address] [place] [address] [email or web address] Insurance Assigned Provider 06/17/24 documented as of this encounter Additional Source Comments The information contained in this document represents components of the legal health record. It is not the complete legal health record.[facility]
--- OUTSIDE RECORDS SUMMARY | 2024-11-08 12:22 | XMS_ITS | Clinical Summary ---
Author Organization [facility] Address [address] [place] [address] Care Team Providers Care Citrus Fruit Packer Name Role Phone Unavailable Primary Care Provider Unavailabl e Social History Tobacco Use Types Packs/Day Years Used Date Smoking Tobacco: Never Assessed Comments Unknown Sex and Gender Information Value Date Recorded Sex Assigned at Not on file Legal Sex Female 1:13 AM EST Gender Identity Not on file Sexual Orientation Not on file Plan of Treatment Not on file
== END 2024-11-08 12:02 | disposition home or self-care (01) ==
LOC: HO.RHES 10:58
PROVIDERS: Visit Provider Internal Medicine Rheumatology
DX: R76.8 Other specified abnormal immunological findings in serum (principal); H20.9 Unspecified iridocyclitis; M35.00 Sjogren syndrome, unspecified; M65.30 Trigger finger, unspecified finger
CPT/HCPCS: 99204

== ENCOUNTER 2024-11-08 10:58 | Outpatient (REF) | payer MEDICARE, OTHER, SELFPAY ==
[2024-11-08 17:38] LABS: MANUAL DIFF FLAG NO
[2024-11-08 17:43] LABS: Hematocrit 38.3 % (37.0-47.0); Hemoglobin 12.0 g/dl (12.0-16.0); Imm Gran Abs Auto 0.00 X10*3/uL (0.00-0.03); Imm Gran Pct Auto 0.0 % (0.0-0.4); Lymphocytes Absolute Auto 1.1 X10*3/uL (1.2-4.9); Mean Corpuscular HGB Conc 31.3 g/dl (31.0-35.0); Mean Corpuscular Hemoglobin 28.2 pg (27.0-33.0); Mean Corpuscular Volume 89.9 fL (80.0-98.0); NRBC Abs Auto 0.000 X10*3/uL (0.0-0.012); NRBC Pct Auto 0.0 /100WBC (0.0-0.2); Platelet Count 216 X10*3/uL (160-400); Red Blood Count 4.26 X10*6/uL (4.20-5.50); White Blood Count 3.3 X10*3/uL (4.8-10.8)
[2024-11-08 17:56] LABS: Alanine Aminotransferase 23 U/L (0-31); Aspartate Amino Transferase 27 U/L (5-31); Estimated Glomerular Filt Rate > 60
[2024-11-08 18:30] LABS: Appearance Urine Turbid; Glucose Urine UA Negative (Negative); PH 5.0 (5.0-9.0); Specific Gravity - Urine 1.025 (1.005-1.025); UMIC TRIGGER UACC YES
[2024-11-08 18:53] LABS: Protein/Creatinine Ratio, Ur 0.05 (<0.2); Total Protein Urine Random 8 mg/dL (<12)
[2024-11-09 14:07] LABS: Antibody to SS-A Antigen <1.0 NEG AI (<1.0 NEG); Antibody to SS-B Antigen <1.0 NEG AI (<1.0 NEG); SM/Ribonucleoprotein Ab <1.0 NEG AI (<1.0 NEG); Smith Protein <1.0 NEG AI (<1.0 NEG)
[2024-11-16 09:38] LABS: HLA B27 Negative (Negative)
== END 2024-11-08 10:59 | disposition home or self-care (01) ==
LOC: HO.HKASLDS 10:58
PROVIDERS: Visit Provider Internal Medicine Rheumatology
DX: R76.0 Raised antibody titer (principal); R76.8 Other specified abnormal immunological findings in serum; H20.9 Unspecified iridocyclitis; M35.00 Sjogren syndrome, unspecified; M65.30 Trigger finger, unspecified finger
CPT/HCPCS: 36415; 81001; 82565; 82570; 84156; 84450; 84460; 85025; 85652; 86140; 86160; 86225; 86235; 86812; 99202

== ENCOUNTER 2024-11-09 11:07 | Outpatient (REF) | payer MEDICARE, OTHER, SELFPAY ==
--- OUTSIDE RECORDS SUMMARY | 2024-11-07 08:00 | XMS_ITS | Encounter Summary ---
Author Name [facility] [place] [facility] [place] Address [address] [place] [id number] Support Name Relationship Address Phone LISTED, NONE Emergency Contact Unknown Unavailabl e Selected Encounter This section includes the information on record at [place] for the Encounter. Date/Time Encounter Type Encounter Description Reason Provider Source Nov 07, 2024 12:00 PM [facility] CAREGIVER SUPPORT PROGRAM ICD-10-CM Z71.0 Prsn encntr hlth serv to consult on behalf of another person LETY SHEN Encounter Template Text not used by [place] Assessments - Encounter Diagnoses This section includes the primary and secondary diagnoses documented for the Encounter. Date/Time Primary/Secondary Diagnosis Diagnosis Name Provider Source Nov 08, 2024 03:41 PM PRIMARY Prsn encntr hlth serv to consult on behalf of another person LETY SHEN [facility] (631GE) Encounter Notes: All associated encounter notes This section contains the clinical notes associated to the Encounter. Date/Time Encounter Note(s) Provider Source Nov 06, 2024 12:00 PM CAREGIVER CERTIFIC ATE: LOCAL TITLE: [facility] WELLNESS CONTACT CAREGIVER STANDARD TITLE: CAREGIVER CERTIFICATE DATE OF NOTE: NOV 06, 2024@12:00 ENTRY DATE: NOV 07, 2024@18:45:56 AUTHOR: LETY SHEN EXP COSIGNER: URGENCY: STATUS: [...] one visit must occur in the eligible Stanley's home on an annual basis. Date of visit: 11/06/2024 Length of visit: 20 minutes The Caregiver was identified using the following singh identifiers: Full Name: JEREMY JJ Date of : [birth year] Full Address: [address] [place] [address] Phone #: PATIENT PHONE - Email address: [email or web address] Is the above contact information in the electronic health record and the Caregiver Support Program IT system, correct? Yes Reason for contact: Routine (120-day contact) Method of contact: Video Telehealth Contact number for backup/emergency communication: PATIENT PHONE - Caregiver location during visit: Home [address] [place] [address] Others present for visit with caregiver's consent: Name(s): Stanley Caregiver confirms location is safe and private for visit. Telehealth Disclosure: Visit conducted by synchronous telehealth. Caregiver verbal consent obtained. Location/emergency number confirmed. Environment surveyed and all participants identified. Virtual conference room locked. CAREGIVER INFORMATION The caregiver is a: Primary Family Caregiver Caregiver is providing care to: Name: Ruiz Jj The caregiver lives with the Stanley. CAREGIVER ASSESSMENT How has your physical/mental/emotional health been lately? Details: Stable overall. Had rotator cuff issue with right shoulder due to arthritis. Stopped playing pickleball, but back at it now. Have you experienced any changes (falls, ER visits, hospitalizations) and/or any concerns? No What is most important to you about your health and overall well-being? Details: Staying fit, doing small exercises and engaging in self-care. What goals or needs can we assist you with? Details: Caregiver inquired about follow-up [facility] maintenance session. Geospatial Engineer agreed to discuss with colleague and get back to caregiver. Are there training topics or resources that you would like to learn more about? Declined. Do you have any legal or financial planning concerns? Details: Would like to get status of thier appeal for [facility] nahun. Geospatial Engineer agreed to reach out to prosthetics dept. Do you feel comfortable and safe in your home environment? Yes Do you have a personalized respite plan? Yes - Informal Details: 51 year-old son - Formal Details: educated on VA DIVIDING MACHINE OPERATOR and respite support SCREENING TOOLS CSP Staff provided information on the following resources and support: - Other VA Services: VA DIVIDING MACHINE OPERATOR/Respite Supports; Legal & Financial Resource. Geospatial Engineer to follow up on [facility] maintenance session. SUMMARY AND PLAN OF SUPPORT: Caregiver quarterly wellness assessment took place via [facility]. Stanley continues to experience freezing episodes and gait issues due to his Parkinson's Disease. He's a fall risk. He recently participated in some PT sessions at [place], but didn't find them all that helpful. Has new neurologist via [facility], Dr. Regan who recommended utilize pump when taking carbidopa/levodopa as he feels it will help with freezing episodes. will trial this in the future. Mood continues to be okay. plans on signing him up for Yoga at [facility]. He continues with his home exercises and tries to read during his down time. Caregiver continues to manage overall care. She has outlets via local [employer] and enjoys pickleball. Also enjoys gardening and will occasionally tap int [facility] supports and reported being open to future reunion with [facility] [place] [facility]. Geospatial Engineer also agreed to reach out to prosthetics department to see if they are aware of any updates on [facility] nahun as couple were initially denied and appealed that decision. Geospatial Engineer to follow up with next week. /trino/ REFUGIO JOHNSON NURSE'S COMPANION Signed: 11/08/2024 15:41 LETY SHEN [facility] (631GE)
--- OUTSIDE RECORDS SUMMARY | 2024-11-08 07:19 | XMS_ITS | Continuity of Care Document ---
Author Name [facility] Organization [facility] Care Team Providers Care Employment Legal Assistant Name Role Phone [facility] Unavailable Unavailable Problems Combined list of problems from Department of Defense and Veterans Affairs facilities. It does not include entries that were removed or entered in error. Problem Status Onset Date Problem Type Date of Resolution Comments Source Diagnosis: ICD-10-CM Z71.0 Prsn encntr hlth serv to consult on behalf of another person Active Diagnosis [facility] (341GE) Diagnosis: ICD-10-CM Z65.8 Oth problems related to psychosocial circumstances Active Diagnosis [facility] Encounters Combined list of: 1) Encounters from Department of Veterans Affairs facilities going backup to the last 18 months, not all [place] inpatient encounters are included; 2) Encounters from the Department of [facility] facilities going backup to 280 months. Location Location Details Encounter Type Encounter Number Reason For Visit Attending Provider ADM Date DC Date Status Disposition Source [facility] PSYCH DIAGNOSTIC EVALUATION [id number] Diagnos is: ICD-10- CM Z65.8 Oth problem s related to psychos ocial circums tances ALEXANDREA,SHAVO NNE 05/22 [facility] [place] [facility] Outpatient Encounter [id number] 05/22 [place] [facility] PSYTX W PT 60 MINUTES [id number] Diagnos is: ICD-10- CM Z65.8 Oth problem s related to psychos ocial circums tances DASH,SHAVO NNE 06/05 [facility] [place] [facility] Outpatient Encounter [id number] 06/05 [place] [facility] (631GE) Outpatient Encounter [id number] Diagnos is: ICD-10- CM Z71.0 Prsn encntr hlth serv to consult on behalf of another person HAMILTON LUCÍA FANG 06/29 [facility] (631GE) [facility] [place] [facility] PRO PHONE CALL 5-10 MIN [id number] Diagnos is: ICD-10- CM Z71.0 Prsn encntr hlth serv to consult on behalf of another person SHEN,ALISON 07/03 [place] [facility] [place] [facility] CASE MANAGEMENT [id number] Diagnos is: ICD-10- CM Z71.0 Prsn encntr hlth serv to consult on behalf of another person SHEN,ALISON 07/04 [place] [facility] [place] [facility] PRO PHONE CALL 21-30 MIN [id number] Diagnos is: ICD-10- CM Z71.0 Prsn encntr hlth serv to consult on behalf of another person SHEN,ALISON 07/10 [place] [facility] [place] [facility] CASE MANAGEMENT [id number] Diagnos is: ICD-10- CM Z71.0 Prsn encntr hlth serv to consult on behalf of another person SHEN,ALISON 07/17 [place] [facility] [place] [facility] PT EDUCATION NOC GROUP [id number] Diagnos is: ICD-10- CM Z71.0 Prsn encntr hlth serv to consult on behalf of another person SHEN,ALISON 07/26 [place] [facility] Outpatient Encounter [id number] 08/02 [facility] [place] [facility] Outpatient Encounter [id number] 08/02 [facility] [place] [place] [facility] [place] [facility] Encounter [id number] 08/08 [facility] [place] [place] [facility] [place] [facility] PT EDUCATION NOC GROUP [id number] Diagnos is: ICD-10- CM Z71.0 Prsn encntr hlth serv to consult on behalf of another person SHEN,ALISON08/09 [facility] [place] [facility] [place] Out[facility] Encounter [id number] 08/17 [facility] [place] [facility] [place] PT EDUCATION NOC GROUP [id number] Diagnos is: ICD-10- CM Z71.0 Prsn encntr hlth serv to consult on behalf of another person SHEN,ALISON08/23 [facility] [place] [place] [facility] [place] [facility] PT EDUCATION NOC GROUP [id number] Diagnos is: ICD-10- CM Z71.0 Prsn encntr hlth serv to consult on behalf of another person SHEN,ALISON09/06 [facility] [place] [place] [facility] [facility] [place] [facility] PT EDUCATION NOC GROUP [id number] Diagnos is: ICD-10- CM Z71.0 Prsn encntr hlth serv to consult on behalf of another person SHEN,ALISON 09/20 [facility] [place] [place] [facility] [facility] [place] [facility] PT EDUCATION NOC GROUP [id number] Diagnos is: ICD-10- CM Z71.0 Prsn encntr hlth serv to consult on behalf of another person ALISON SHEN SE 10/04 [facility] [place] [facility] [place] [facility] PT EDUCATION NOC GROUP [id number] Diagnos is: ICD-10- CM Z71.0 Prsn encntr hlth serv to consult on behalf of another person ALISON SHEN SE 10/18 [place] [facility] [place] [facility] CASE MANAGEMENT [id number] Diagnos is: ICD-10- CM Z71.0 Prsn encntr hlth serv to consult on behalf of another person ALISON SHEN SE 11/28 [place] [facility] [place] [facility] PT EDUCATION NOC GROUP [id number] Diagnos is: ICD-10- CM Z71.0 Prsn encntr hlth serv to consult on behalf of another person HAMILTONLUCÍA FANG 01/26 [place] [facility] [place] [facility] CASE MANAGEMENT [id number] Diagnos is: ICD-10- CM Z71.0 Prsn encntr hlth serv to consult on behalf of another person ALISON SHEN SE 03/29 [place] [facility] (631GE) PH1 ASSMT&MGMT NQHP 5-10 [id number] Diagnos is: ICD-10- CM Z71.0 Prsn encntr hlth serv to consult on behalf of another person HAMILTONLUCÍA FANG 05/11 [facility] (631GE) [facility] [place] [place] [facility] PT EDUCATION NOC GROUP [id number] Diagnos is: ICD-10- CM Z71.0 Prsn encntr hlth serv to consult on behalf of another person JAIR RAMIREZ 05/16 [place] [facility] [place] [facility] PT EDUCATION NOC GROUP [id number] Diagnos is: ICD-10- CM Z71.0 Prsn encntr hlth serv to consult on behalf of another person JAIR RAMIREZ 06/06 [place] [facility] (631GE) CASE MANAGEMENT [id number] Diagnos is: ICD-10- CM Z71.0 Prsn encntr hlth serv to consult on behalf of another person ALISON SHEN SE 06/25 [facility] (631GE) [facility] (631GE) Outpatient Encounter [id number] 11/07 [facility] (631GE)
--- NOTE | ~2024-11-09 | XR_ITS ---
Exam: Three-view, bilateral hand x-rays TECHNIQUE: AP, lateral, and ball-catcher views upper extremity, bilateral hands INDICATION: Hand pain COMPARISON: None available. FINDINGS: RIGHT HAND: DIP joint of the second digit demonstrates asymmetric moderate joint space narrowing with central erosive change. There is moderate narrowing of the third and fourth DIP joints. There is mild asymmetric narrowing of the fifth DIP joint with the gull wing deformity. There are large marginal osteophytes involving the second and fifth DIP joints and minute osteophytes involving the third and fourth MP joints. PIP joints demonstrate mild to moderate asymmetric joint space narrowing with small marginal osteophytes involving the second digit and minute osteophytes at the third, fourth, and fifth DIP joints. MCP joint spaces are preserved. There are minute osteophytes involving the second ray. There is moderate narrowing, stenosis, and osteophytes involving the IP joint of thumb. And mild changes at the first MCP joint. LEFT HAND: There is mild to moderate asymmetric joint space narrowing involving the second and third DIP joints with central erosive changes. Mild central joint space narrowing is present at the fifth DIP joint. PIP joints demonstrate mild asymmetric joint space narrowing involving the second, third, and fifth joints. MCP joints are preserved. There is mild to moderate narrowing of the IP joint of the thumb with marginal osteophytes and subchondral sclerosis. Focal lucency in the radial base of the second metacarpal is probably degenerative cystic change, the origin is not ruled out. XR/XR Hand Bilat min 3v IMPRESSION: Right hand: [id number] degenerative changes consistent with osteoarthritis. There is evidence of erosive OA involving the second and fifth DIP joints. Left hand: Mild degenerative changes consistent with osteoarthritis with evidence of erosive OA involving the second and third DIP joints. Focal lucency at the base of the second metacarpal is probably degenerative cystic change, erosion is not ruled out. Electronically signed by: Je Waller MD 11/09/2024 11:58 AM EDT
--- OUTSIDE RECORDS SUMMARY | 2024-11-09 11:50 | XMS_ITS | Encounter Summary ---
Author Organization [facility] Address [address] [facility] [address] [place] [address] Phone Care Team Providers Care Holter Scanning Technician Name Role Phone Nataliya Szymanski NP Primary Care Provider [phone] Self-Referred, Patient Unavailable Unavailab Davian Becker MD Unavailable [phone] Unknown, Unknown Primary Care Provider Humaira Eng Primary Care Provider [phone] Humaira Gomez Unavailable [phone] Encounter Details Date Type Department Care Team (Late Contact Info) Description 05/21/2021 Procedure Pass [facility] Endoscopy Admitting Dept Virtual Department [address] [place] [address] Social History Tobacco Use Types Packs/Day Years [...] Upcoming Encounters Date Type Department Care Team ([facility] Contact Info) Description 11/28/2024 10:00 AM EDT Office Visit [facility] Pulmonary, Allergy and Critical Care Medicine 10 [place] [address] Chao Turcios MD [address] [place] [address] documented as of this encounter Visit Diagnoses Not on filedocumented in this encounter Additional Health Concerns Infection Onset Date Last Indicated Resolved Time CoV-Exposed Comment:Recent close contact documented in the COVID-19 Amb Triage Form 12/03/2021 12/03/2021 12/14/2021 1:22 AM E DT Assessment Noted Time PHQ-2 Depression Total Score: 0 01/14/20 21 6:42 PM EDT documented as of this encounter Care Teams Holter Scanning Technician Relationship Specialty Start Date End Date Nataliya Szymanski NP PCP - General 12/21/16 05/29/23 Unknown, Unknown, MD PCP - General 05/30/23 10/12/23 Humaira Gomez [address] [place] [address], [address] [place] [address] [email or web address] PCP - General Family Medicine 10/13/23 Self-Referred, Patient Referring Physician 12/21/16 Davian Green MD [address] [place] [address] Insurance Assigned Provider 06/18/23 Humaira Gomez [address] [place] [address], [address] [place] [address] [email or web address] Insurance Assigned Provider 06/17/24 documented as of this encounter Additional Source Comments The information contained in this document represents components of the legal health record. It is not the complete legal health record.[facility]
--- OUTSIDE RECORDS SUMMARY | 2024-11-09 11:50 | XMS_ITS | Encounter Summary ---
Author Organization [facility] Address [address] [facility] [address] [place] [address] Phone Care Team Providers Care Film Reader Name Role Phone Nataliya Szymanski NP Primary Care Provider Self-Referred, Patient Unavailable Unavailab Davian Becker MD Unavailable [phone] Unknown, Unknown Primary Care Provider Humaira Eng Primary Care Provider Humaira Gomez Unavailable [phone] Encounter Details Date Type Department Care Team (Late Contact Info) Description 11/19/2020 Procedure Pass Non-Invasive Cardiology [address] [place] [address] Social History Tobacco Use Types Packs/Day Years [...] Pulmonary, Allergy and Critical Care Medicine 10 [place] [address] Chao Turcios MD [address] [place] [address] documented as of this encounter Visit Diagnoses [...] documented as of this encounter Care Teams Film Reader Relationship Specialty Start Date End Date Nataliya Szymanski NP PCP - General 12/21/16 05/29/23 Unknown, Unknown, PCP - General 05/30/23 10/12/23 Humaira Gomez [address] [place] [address], [address] [place] [address] [email or web address] PCP - General Family Medicine 10/13/23 Self-Referred, Patient Referring Physician 12/21/16 Davian Green MD [address] [place] [address] Insurance Assigned Provider 06/18/23 Humaira Gomez [address] [place] [address], [address] [place] [address] [email or web address] Insurance Assigned Provider 06/17/24 documented as of this encounter Additional Source Comments The information contained in this document represents components of the legal health record. It is not the complete legal health record.[facility]
--- OUTSIDE RECORDS SUMMARY | 2024-11-09 11:51 | XMS_ITS | Clinical Summary ---
Author Organization [facility] Address [address] [place] [address] Care Team Providers Care Keypunch Operators Supervisor Name Role Phone Unavailable Primary Care Provider [...]
--- OUTSIDE RECORDS SUMMARY | 2024-11-09 11:51 | XMS_ITS | Clinical Summary ---
Author Organization [facility] Address [address] [address] Phone Care Team Providers Care Medical Office Technology Instructor Name Role Phone Self-Referred, Patient Unavailable Unavailab Humaira Contreras Primary Care Provider [phone] Humaira Gomez Unavailable [phone] Allergies Active Allergy Reactions Criticality Noted Date [...] CT 2022- see [place] done [place] [facility] [place] & Plan (11/25/2022 1:14 PM EDT): [...] PM EDT Hospital Encounter [facility] [address] [place] [address] Mike Becerril MD Discharge Disposition: Home or Self Care 09/28/2024 1:56 PM EDT - 09/28/2024 11:59 PM EDT Hospital Encounter [facility] PFT Lab [address] [place] [address] Humaira Gomez Discharge Disposition: Home or Self Care 09/28/2024 Transcribe Orders [facility] [address] [place] [address] Humaira Gomez from Last 3 Months Immunizations [...] [facility], [facility] [address] [place] [address] Irene Turcios MD [address] [place] [address] [address] [place] [address] Health Maintenance Due Date Last Done Comments [...] SEE NARRATIVE - 11/01/2024 3:04 PM EDT [address] [address] Director Of Labor And Delivery: Uvaldo Wilson MD Surgical Pathology Report FINAL PATHOLOGIC DIAGNOSIS: SKIN, LEFT JAIN: Actinic keratosis with verrucous features and inflamed crust. Electronically Signed Out By Denny Maravilla MD By his/her signature above, the pathologist listed as making the Final Diagnosis certifies that he/she has personally reviewed this case and confirmed or corrected the diagnosis. CLINICAL HISTORY Papule left buddhism seborrheic keratosis versus BCC SPECIMENS SUBMITTED: A: SKIN, LEFT JAIN GROSS DESCRIPTION SKIN, LEFT JAIN: Received in formalin are 2 irregular portions of abreu skin measuring 0.4 x 0.3 cm on average each excised to a maximum depth of 0.1 cm which are submitted in toto in a single cassette labeled A1. Grossed by: JANES Hodgson, PA([facility]) [id number] 10/31/2024 Grossing Staff: [id number] Patient Name: YOCASTA JJ : 1950 (Age: 73) Sex: F Institution: [facility] Location: [facility] Date of Operation: 10/30/2024 Date of Reported: 11/01/2024 15:04 Results To: Mike Becerril MD, BS Humaira Gomez MD, MED us Mike Becerril MD PATHOLOGY ORDERABLES Final R esult SEE NARRATIVE * Pulmonary Function Test Reason for Exam: Cough; Type of PFT Test: Spirometry with bronchodilator; Performing Location: [facility] (09/28/2024 2:53 PM EDT) FEV1 2.08 [...] cough. Technical Note: As of 01/24/2024, the [facility] Pulmonary Function Testing (PFT) Laboratory transitioned [...] please contact the interpreting physician or PFT seed analysis laboratory assistant. For further discussion of this issue please see Yolanda [facility] 2022;[id number]. Please Note: Not all PFT labs within, or outside of, our system will be transitioning to new reference equations at the same time. For this reason, please pay close attention to absolute values when comparing results done at different testing locations within or outside of our system. [facility] PFT ORDERABLES Final Resul t * (ABNORMAL) Lipid panel (05/07/2024 8:50 AM EST) HDL 98 mg/dL [facility] Comment: Interpretation <40 mg/dL: Low HDL cholesterol (major risk factor for CHD) Greater than or equal to 60 mg/dL: High HDL cholesterol ( negative risk factor for CHD) HDL - cholesterol is affected by a number of factors, e.g. smoking, excerise, hormones, sex and age. CHOLESTEROL 194 0 - 240 mg/dL [facility] TRIGLYCERIDES 94 30 - 160 mg/dL [facility] LDL 77 50 - 129 mg/dL [facility] Comment: LDL levels in terms of risk for coronary heart disease: <100 mg/dL: Optimal 100-129 mg/dL: Near or above optimal 130-159 mg/dL: Borderline high 160-189 mg/dL: High >190 mg/dL: Very High CARDIAC RISK RATIO 2.0(L) 3.3 - 4.4 [facility] Blood 05/07/2024 8:50 AM EST 05/07/2024 8:54 AM EST [facility] LAB BLOOD ORDERABLES Final Result [facility] [address] [place] [address] * MAMMOGRAPHY FOR RESULT ENTRY ONLY (02/15/2024 3:26 PM EST) [facility] Edited R esult - Final * BD [...] 68 Admit Type: Outpatient Gender: Female Room: [facility] Referring MD: NATALIYA SZYMANSKI Exam Type: Colonoscopy [...] 11:59 AM Procedure Code(s): --- Professional --- 55622, Colonoscopy, flexible; diagnostic, including collection of specimen(s) by brushing or washing, when performed (separateprocedure) --- Technical --- 68968, Colonoscopy, flexible; diagnostic, including collection of specimen(s) by brushing or washing, when performed (separateprocedure) Diagnosis Code(s): --- Professional --- K64.8, Other hemorrhoids K64.4, Residual hemorrhoidal skin tags K92.1, Melena (includes Hematochezia) --- Technical --- K64.8, Other hemorrhoids K64.4, Residual hemorrhoidal skin tags K92.1, Melena (includes Hematochezia) CPT copyright 2020 [employer]. All rights reserved. The codes documented in this report are preliminary and upon acquisitions editor reviewmay be revised to meet current compliance requirements. Procedure Date: 05/21/2021 11:59:[address] [place] [address] us Nataliya Szymanski NP GI PROCEDURE ORDERABLES Final R esult * Hepatitis C antibody, qualitative (12/14/2018 11:18 AM EDT) HCV NON-REACTIV E NON-REACTI VE [facility] Blood 12/14/2018 11:1 8 AM EDT 12/14/2018 11:20 AM EDT us Nataliya Szymanski NP LAB BLOOD ORDERABLES Final Resu lt [address] [address] from Last 3 Months or Most Recently Relevant to Health Maintenance Insurance [facility] [place] [address] MEDICARE PART A & B [facility] Address[facility] ATTN:[facility] CLAIMS [address] [address] [place] [address] MEDICARE PART A & [place] [address] MEDICARE PART A & [place] [address] MEDICARE PART [place] & [place] [address] MEDICARE PART [address] & [place] [address] MEDICARE PART A & B MEDICARE PART [place] & [place] [address] MEDICARE PART A & B MEDICARE PART [place] & [place] [address] MEDICARE PART A & B Care Teams Medical Office Technology Instructor Relationship Specialty Start Date End Date Humaira Gomez [address] [facility], [address] [place] [address] [email or web address] PCP - General Family Medicine 10/13/23 Self-Referred, Patient Referring Physician 12/21/16 Humaira Gomez [address] [place] [address], [address] [place] [address] [email or web address] Insurance Assigned Provider 06/17/24 Additional Source Comments The information contained in this document represents components of the legal health record. It is not the complete legal health record.[facility]
== END 2024-11-09 11:08 | disposition home or self-care (01) ==
LOC: HO.XRAY 11:07
PROVIDERS: Visit Provider Internal Medicine Rheumatology
DX: M79.641 Pain in right hand (principal); M79.642 Pain in left hand
CPT/HCPCS: 73130

== ENCOUNTER → 2024-11-09 11:12 | Outpatient (BNV) | payer MEDICARE, OTHER, SELFPAY | PROVIDERS: Visit Provider Radiology Diagnostic Radiology | DX: M79.641 Pain in right hand (principal); M79.642 Pain in left hand | CPT/HCPCS: 73130 ==

== ENCOUNTER 2025-02-06 09:21 | Outpatient (AMB) | payer MEDICARE, OTHER, SELFPAY ==
--- NOTE | 2025-02-06 09:26 | MHC.OFFVIS ---
Vital Signs 02/06/25 09:27 Height 5 ft 2 in Weight 109 lb 2.061 oz BMI 20.0 BP 126/70 Blood Pressure Location Rt brachial Position Sitting Pulse 64 Pulse Source Pulse Oximeter Pulse Oximetry (%) 98 Oxygen Delivery Method Room Air Intake Visit Reasons: + XIOMARA/Joint Pain Intake Note: Patient presents for a +XIOMARA and joint pain in hands. Accompanied by: Self / Same As Patient Allergies acetaminophen (From Percocet) Allergy (Severe, Verified 02/06/25 09:28) swelling oxycodone (From Percocet) Allergy (Severe, Verified 02/06/25 09:28) swelling Sulfa (Sulfonamide Antibiotics) Allergy (Mild, Verified 02/06/25 09:28) Rash HPI HPI + XIOMARA/Joint Pain: Details: No new joint swelling episode involving MCPs. She has swelling of her right 2nd finger. She has migratory pain. Recently she was raking which led to pain in the palms of her hands and upper neck pain. After laying on her hip for prolonged period of time at night she has hip pain. [facility] Medical History (Updated 02/06/25 @ 10:05 by Adam De Leon MD) Basal cell carcinoma Endometrial cancer Osteopenia High cholesterol Family History (Updated 11/08/24 @ 11:14 by Lali Eller CMA) Paternal Grandmother Rheumatoid arthritis Osteoarthritis Brother Polymyositis with myopathy Physical Exam Vital Signs: Last Vital Signs Pulse 64 02/06/25 09:27 BP 126/70 02/06/25 09:27 Pulse Ox 98 02/06/25 09:27 Oxygen Delivery Method Room Air 02/06/25 09:27 BMI result Body Mass Index 20.0 Const Other: General: Comfortable Skin: No lesions seen MSK: Right 2nd DIPJ joint swelling with Heberden nodes present. Tender right DIPJ. Tender right 2nd PIP. She has Heberden nodes and Valdez's nodes. 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 Assessment & Plan Assessment & Plan (1) Positive XIOMARA (antinuclear antibody): Comment: Low titer 1:160, sicca symptoms, recurrent right uveitis, episode concerning for inflammatory arthritis winter 2023 with subsequent development of multiple trigger fingers and polyarthralgias. On exam she does not have active signs of inflammatory arthritis. She has a erosive osteoarthritis. Right 2nd DIPJ joint swelling is secondary to osteoarthritis. Specific laboratory workup for Sjogren syndrome, lupus and inflammatory arthritis was negative. She does have leukopenia, which patient reports was detected on her blood work from 2022. She has negative rheumatoid factor anti CCP antibodies. At this time my suspicion for connective tissue disease is low. Code(s): R76.8 - Other specified abnormal immunological findings in serum Category: Medical Plan: OT ordered for hand strengthening She will apply diclofenac gel 1% applied to affected area every 4-6 hours as needed Consider paraffin wax bath for management of hand osteoarthritis She will apply ice to affected area Follow up with PCP for evaluation of leukopenia. Consider hematology evaluation. Patient reports a 1 year history of cervical lymphadenopathy, which I am not able to appreciate on exam this visit. 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
[2025-02-06 09:27] VITALS: BP 126/70; PULSE 64; O2SAT 98
--- OUTSIDE RECORDS SUMMARY | 2025-02-06 10:20 | XMS_ITS | Clinical Summary ---
Author Organization [facility] Address [address] [place] [address] Care Team Providers Care Diversified Crops Ii Farmworker Name Role Phone Unavailable Primary Care Provider [...]
== END 2025-02-06 10:06 | disposition home or self-care (01) ==
LOC: HO.RHES 09:22
PROVIDERS: Visit Provider Internal Medicine Rheumatology
DX: R76.89 Other specified abnormal immunological findings in serum (principal); H20.9 Unspecified iridocyclitis; M15.4 Erosive (osteo)arthritis
CPT/HCPCS: 99214; G2211

== ENCOUNTER → 2025-02-06 09:21 | Outpatient (BNVA) | payer MEDICARE, OTHER, SELFPAY | PROVIDERS: Visit Provider Internal Medicine Rheumatology | DX: R76.89 Other specified abnormal immunological findings in serum (principal); H20.9 Unspecified iridocyclitis; M15.4 Erosive (osteo)arthritis | CPT/HCPCS: 99212 ==